=== PATIENT | female | born 1975 | race Caucasian/White ===

== ENCOUNTER 2017-02-27 17:27 | Emergency (ER) | payer OTHER ==
[2017-02-27] MEDS ORDERED: ACETAMINOPHEN 325 MG TABLET (FP) PO ONE (17:38)
[2017-02-27 17:42] VITALS: BP 114/57; BMI 27.9
--- NOTE | 2017-02-27 19:03 | PDOC ---
"History of Present Illness - General Chief Complaint: Sore Throat Stated Complaint: COLD SYMPTOMS Time Seen by Provider: 02/27/17 18:38 History Source: Patient Exam Limitations: No Limitations - History of Present Illness Initial Comments: 02/27/17 19:11 My Chief complaint: Fever and sore throat 2 days and left lower back pain for 4 days with radiation down left leg History of present illness: Pt.is a 41-year-old female with a history of herniated disks with radiculopathy down left leg here today complaining of fever and sore throat 2 days and worsening left-sided lower back pain with radiation down left leg for last 5 days. Patient reports that she saw her neurologist on 02/18/2017 Dr. Negron and was given a prescription for Mobic 15 mg daily. Patient reports taking Mobic 15 mg today. Patient reports that left sided lower back pain with radiation down her left leg is currently a 10 out of 10. Patient denies any numbness of her left leg or any saddle anesthesia or any incontinency. Patient denies any chance of is not sexually active. Patient's son is here with her and is driving. Patient denies any cough or any nasal congestion. 02/28/17 09:13 Timing/Duration: getting worse Severity: moderate Associated Symptoms: reports: fever/chills, other (sore throat, left sided lower back pain with radiation down left leg) Past History - Past Medical History Allergies/Adverse Reactions: Allergies Allergy/AdvReac Type Severity Reaction Status Date / Time No Known Allergies Allergy Verified 02/27/17 17:37 Home Medications: Ambulatory Orders Amoxicillin - [Amoxicillin 500mg Capsule -] 1,000 mg PO DAILY #20 capsule Naproxen [Naprosyn -] 500 mg PO BID PRN #14 tablet 02/27/17 Other medical history: MIGRAINES, DISC PROBLEMS IN BACK AND NECK - Surgical History Appendectomy: Yes Cholecystectomy: Yes GI Surgery: Yes (gastric sleeve) Orthopedic Surgery: Yes (R. Shoulder) - Family Disease History Family Disease History: Diabetes: Mother - Psycho/Social/Smoking Cessation Hx Anxiety: No Suicidal Ideation: No Smoking History: Never smoked Have you smoked in the past 12 months: No Number of Cigarettes Smoked Daily: 0 'Breaking Loose' booklet given: 01/24/14 Hx Alcohol Use: No Drug/Substance Use Hx: No Substance Use Type: None Hx Substance Use Treatment: No Review of Systems - Review of Systems Able to Perform ROS?: Yes Constitutional: Yes: Fever HEENTM: Yes: Throat Pain Respiratory: No: Symptoms reported Cardiac (ROS): No: Symptoms Reported ABD/GI: No: Symptoms Reported : No: Symptoms Reported Musculoskeletal: Yes: Back Pain (left lower back pain with radiation down left leg to foot) Integumentary: No: Symptoms Reported Neurological: No: Symptoms reported *Physical Exam - Vital Signs Last Vital Signs Temp Pulse Resp BP Pulse Ox 103.0 F H 120 H 20 114/57 98 02/27/17 17:33 02/27/17 17:33 02/27/17 17:33 02/27/17 17:33 02/27/17 17:33 - Physical Exam General Appearance: Yes: Appropriately Dressed HEENT: positive: TMs Normal, Pharyngeal Erythema, Tonsillar Exudate (right sided with no uvular deviation ), Tonsillar Erythema, Nasal Congestion, Rhinorrhea Neck: positive: Lymphadenopathy (R), Lymphadenopathy (L) Respiratory/Chest: positive: Lungs Clear, Normal Breath Sounds. negative: Chest Tender, Respiratory Distress Cardiovascular: positive: Regular Rhythm, Regular Rate, S1, S2 Musculoskeletal: positive: Normal Inspection, Decreased Range of Motion (from waist ). negative: CVA Tenderness, CVA Tenderness (R), CVA Tenderness (L), Vertebral Tenderness Integumentary: positive: Normal Color Neurologic: positive: Alert, Normal Response, Motor Strength 5/5 (lower extremities), Respond to painful stimul (b/l lower extremities), Other (+ SLR left, ). negative: Numbness, Sensory Deficit (lower legs) Deep Tendon Reflexes: Knee (L): 4+, Knee (R): 4+ ED Treatment Course - Medications Given in the ED: ED Medications Discontinued Medications Generic Name Dose Route Start Last Admin Trade Name Freq PRN Reason Stop Dose Admin Acetaminophen 650 mg 02/27/17 17:38 02/27/17 17:39 Tylenol - PO 02/27/17 17:39 650 mg NOW ONE Administration Medical Decision Making - Medical Decision Making 02/27/17 19:14 Pt.is a 41-year-old female with a history of herniated disks with radiculopathy down left leg here today complaining of fever and sore throat 2 days and worsening left-sided lower back pain with radiation down left leg for last 5 days. Patient reports that she saw her neurologist on 02/18/2017 Dr. Negron and was given a prescription for Mobic 15 mg daily. Patient reports taking Mobic 15 mg today. Patient reports that left sided lower back pain with radiation down her left leg is currently a 10 out of 10. Patient denies any numbness of her left leg or any saddle anesthesia or any incontinency. Patient denies any chance of is not sexually active. Patient's son is here with her and is driving. Patient denies any cough or any nasal congestion. She did not tell [employer] that she had been given also Percocet 5/325 mg from her neurologist. tonsillitis r/o strep left lower back pain with radiculopathy left leg tonsillitis strep PLAN: Throat C&S rapid + for Beta hemolytic strep group A percocet 5mg /325 mg po now acetaminophen 650 mg po now amoxicillin 1000 mg daily for 10 days stop mobic take naprosyn 500 mg po bid for 7 days prn pain # 14 tabs [employer] REPA[employer] Confidential Drug Utilization Report Search Terms: Belen Buckley, 1975 Search Date: 02/27/2017 07:54:15 PM This report was requested by: Deanna Valdez | Reference #: [id number] Others' Prescriptions Patient Name: Belen Atkinson Date: 1975 Address: [address] [place] [address] Sex: Female Rx Written Rx Dispensed Drug Quantity Days Supply Prescriber Name 01/31/2017 02/01/2017 oxycodone-acetaminophen 5-325 mg tablet 120 30 Ricahrd Negron MD 01/31/2017 02/01/2017 diazepam 5 mg tablet 90 30 Richard Negron MD 02/28/17 09:14 02/28/17 09:14 *DC/Admit/Observation/Transfer Diagnosis at time of Disposition: Lumbar back pain with radiculopathy affecting left lower extremity, Streptococcal tonsillitis - Discharge Dispostion Disposition: HOME Condition at time of disposition: Stable - Prescriptions Prescriptions: Amoxicillin - [Amoxicillin 500mg Capsule -] 1,000 mg PO DAILY #20 capsule Naproxen [Naprosyn -] 500 mg PO BID PRN #14 tablet PRN Reason: Pain - Referrals Referrals: Wade Landry [Primary Care Provider] - - Patient Instructions Additional Instructions: Follow Up with your neurologist as soon as possible Return to emergency room if symptoms worsen any numbness of groin or trouble a bladder or bowel movement Stop taking Mobic when taking Naprosyn as ordered today Rule out her toothbrush at end of treatment get a new one Take Tylenol or acetaminophen as needed as directed by hand ornament maker for fever or pain associated with your throat Patient voiced understanding of discharge instructions and all questions were answered"
[2017-02-27] MEDS ORDERED: OXYCODONE/APAP 5/325MG COMBO TABLET PO ONE (19:17)
[2017-02-27] MEDS ORDERED: OXYCODONE/APAP 5/325MG COMBO TABLET ONE (19:24)
[2017-02-27 19:58] VITALS: PULSE 107; TEMP 101.5
== END 2017-02-27 20:04 | disposition home or self-care (01) ==
LOC: JER 17:27 → JERFT 17:27
DX: J03.00 Acute streptococcal tonsillitis, unspecified (principal); M54.16 Radiculopathy, lumbar region; Z98.84 Bariatric surgery status
CPT/HCPCS: 87070; 87077; 87430; 99281-25

== ENCOUNTER 2017-12-15 08:30 | Emergency (ER) | payer SELFPAY ==
[2017-12-15 08:36] VITALS: TEMP 98.3; BMI 27.4
--- NOTE | 2017-12-15 09:01 | PDOC ---
History of Present Illness - General Chief Complaint: Syncope/Near Syncope Stated Complaint: PASSED OUT Time Seen by Provider: 12/15/17 08:52 History Source: Patient Exam Limitations: No Limitations - History of Present Illness Initial Comments: 12/15/17 10:40 Patient is a 42-year-old female past medical history of low back pain, sciatica , migraines, who presents emergency department today after syncopal episode at 3 AM this morning. [place] states she got very hot, flushed and lightheaded. She states that she then "passed out "for an undetermined length of time. She is not sure if she hit her head. She states that multiple people at the casino witnessed her fall. She can recall all events. States that right now she feels a little weak area and otherwise denies recent illness, fevers, chills, headache, lightheadedness, dizziness, nausea, vomiting, hemoptysis, blood in the stool. Past History - Travel Traveled outside of the country in the last 30 days: No Close contact w/someone who was outside of country & ill: No - Past Medical History Allergies/Adverse Reactions: Allergies Allergy/AdvReac Type Severity Reaction Status Date / Time No Known Allergies Allergy Verified 12/15/17 08:31 Home Medications: Ambulatory Orders Oxycodone HCl/Acetaminophen [Percocet 5-325 mg Tablet] 1 tab PO Q6H PRN COPD: No Other medical history: SCIATICA, MIGRANES - Surgical History Appendectomy: Yes Cholecystectomy: Yes GI Surgery: Yes (gastric sleeve) Orthopedic Surgery: Yes (R. Shoulder) - Family Disease History Family Disease History: Diabetes: Mother - Suicide/Smoking/Psychosocial Hx Smoking History: Current some day smoker Have you smoked in the past 12 months: Yes Number of Cigarettes Smoked Daily: 2 Information on smoking cessation initiated: Yes 'Breaking Loose' booklet given: 12/15/17 Hx Alcohol Use: No Drug/Substance Use Hx: No Substance Use Type: None Hx Substance Use Treatment: No Review of Systems - Review of Systems Able to Perform ROS?: Yes Comments:: 12/15/17 10:42 CONSTITUTIONAL: Absent: fever, chills, diaphoresis, generalized weakness, malaise, loss of appetite HEENT: Absent: rhinorrhea, nasal congestion, throat pain, throat swelling, difficulty swallowing, mouth swelling, ear pain, eye pain, visual Changes CARDIOVASCULAR: Present: LOC Absent: chest pain, palpitations, irregular heart rate, peripheral edema RESPIRATORY: Absent: cough, shortness of breath, dyspnea with exertion, orthopnea, wheezing, stridor, hemoptysis GASTROINTESTINAL: Absent: abdominal pain, abdominal distension, nausea, vomiting, diarrhea, constipation, melena, hematochezia GENITOURINARY: Absent: dysuria, frequency, urgency, hesitancy, hematuria, flank pain, genital pain MUSCULOSKELETAL: Absent: myalgia, arthralgia, joint swelling SKIN: Absent: rash, itching, pallor HEMATOLOGIC/IMMUNOLOGIC: Absent: easy bleeding, easy bruising, lymphadenopathy, frequent infections ENDOCRINE: Absent: unexplained weight gain, unexplained weight loss, heat intolerance, cold intolerance NEUROLOGIC: Absent: headache, focal weakness or paresthesias, dizziness, unsteady gait, seizure, mental status changes, bladder or bowel incontinence PSYCHIATRIC: Absent: anxiety, depression, suicidal or homicidal ideation, hallucinations. Is the patient limited Cuban proficient: No *Physical Exam - Vital Signs Last Vital Signs Temp Pulse Resp BP Pulse Ox 98.3 F 95 H 19 104/62 100 12/15/17 08:31 12/15/17 08:31 12/15/17 08:31 12/15/17 08:31 12/15/17 08:31 - Physical Exam Comments: 12/15/17 10:43 GENERAL: Well developed, well nourished. Awake and alert. No acute distress. HEENT: Normocephalic, atraumatic. No bruising noted above the clavical. Head with no step offs or crepitus felt. No hemotympanum. PERRLA, EOMI. No conjunctival pallor. Sclera are non-icteric. Moist mucous membranes. Oropharynx is clear. NECK: Supple. Full ROM. No JVD. Carotid pulses 2+ and symmetric, without bruits. No thyromegaly. No lymphadenopathy. CARDIOVASCULAR: Regular rate and rhythm. No murmurs, rubs, or gallops. Distal pulses are 2+ and symmetric. PULMONARY: No evidence of respiratory distress. Lungs clear to auscultation bilaterally. No wheezing, rales or rhonchi. ABDOMINAL: Soft. Non-tender. Non-distended. No rebound or guarding. No organomegaly. Normoactive bowel sounds. MUSCULOSKELETAL Normal range of motion at all joints. No bony deformities or tenderness. No CVA tenderness. EXTREMITIES: No cyanosis. No clubbing. No edema. No calf tenderness. SKIN: Warm and dry. Normal capillary refill. No rashes. No jaundice. NEUROLOGICAL: Alert, awake, appropriate. Cranial nerves 2-12 intact. No deficits to light touch and temperature in face, upper extremities and lower extremities. No motor deficits in the in face, upper extremities and lower extremities. Normoreflexic in the upper and lower extremities. Normal speech. Toes are down- going bilaterally. Gait is normal without ataxia. PSYCHIATRIC: Cooperative. Good eye contact. Appropriate mood and affect. Heart Score/ECG Review - History History: Slightly suspicious - Electrocardiogram EKG: Normal - Age Age: </= 45 - Risk Factors Risk Factors Heart Score: Yes Smoking History Based on the list above the patient has:: 1-2 risk factors - Troponin Troponin: </= normal limit - Score Heart Score - Total: 1 ED Treatment Course - LABORATORY CBC & Chemistry Diagram: 12/15/17 09:04 12/15/17 09:04 Medical Decision Making - Medical Decision Making 12/15/17 09:43 Patient is a 42-year-old female past medical history of sciatica, low back pain , migraines, who presents after a syncopal episode early this morning. Patient states that other than feeling "a little weak" she feels back to her usual self. She currently denies headaches, lightheadedness or dizziness. No trauma on exam above the clavicles. Patient states she had 2 drinks last night however is not intoxicated at this time. Patient is able to recall all events of the syncopal episode. Most likely a vasovagal episode however will rule out ACS, electrolyte imbalance, infection. [place] head CT criteria is 0; will not scan at this time. 1.basic labs 2.EKG 3.IV fluids 4.Orthostatics 5.Reevaluate 12/15/17 10:45 EKG: Rate 82 bpm MSR, QTC 446, normal axis, no acute ST-T wave changes; overall impression normal EKG. Heart Score: 1 PERC: 0 Patient states she no longer feels weak after IV fluids. She is feeling much better and would like to go home. Lab work was notable for hemoglobin of 9.6. No active bleeding at this time. Patient states that she will follow with her primary care doctor regarding these results. Could be a reason as to syncopal episode. Troponin is WNL. No gross electrolyte abnormalities. Orthostatics are within normal limits. Will discharge patient home at this time. Return precautions given. Patient understands all discharge instructions and all questions were answered at this time. *DC/Admit/Observation/Transfer Diagnosis at time of Disposition: Syncope and collapse - Discharge Dispostion Disposition: HOME Condition at time of disposition: Stable Admit: No - Referrals Referrals: Gonzalo Contreras MD [Primary Care Provider] - - Patient Instructions Printed Discharge Instructions: DI for Syncope in Adults (Fainting), DI for Iron Deficiency Anemia-Adult Additional Instructions: You had a fainting spell. Your lab work today showed a low blood count concerning with anemia. Please follow-up with her primary care doctor this week regarding your blood results. Please drink plenty of fluids. Again follow-up with her primary care doctor within 24-48 hours. Return to emergency department if you have pain, weakness, nausea, vomiting, headaches, or have any changes in your symptoms. - Post Discharge Activity
[2017-12-15] MEDS ORDERED: SODIUM CHLORIDE 1,000 ML IV STA (09:03)
[2017-12-15 09:16] LABS: BASO % 0.5 % (0-2.0); EOS % 1.1 % (0-4.5); HEMATOCRIT 28.5 % (32.4-45.2); HEMOGLOBIN 9.1 GM/dL (10.7-15.3); LYMPH % 29.2 % (8-40); MCH 21.7 pg (25.7-33.7); MCHC 31.8 g/dl (32.0-36.0); MEAN CELL VOLUME 68.1 fl (80-96); MEAN PLT VOLUME 7.5 fl (7.5-11.1); MONO % 8.6 % (3.8-10.2); NEUT % 60.6 % (42.8-82.8); PLATELET COUNT 426 K/MM3 (134-434); RBC 4.18 M/mm3 (3.60-5.2); RDW 16.3 % (11.6-15.6); WHITE BLOOD COUNT 7.2 K/mm3 (4.0-10.0)
[2017-12-15 09:20] LABS: ADD RBC MORPHOLOGY YES
[2017-12-15 09:30] LABS: HCG,QUALITATIVE URINE NEGATIVE
[2017-12-15 09:31] LABS: URINE APPEARANCE SLCLOUDY; URINE BILIRUBIN NEGATIVE (NEGATIVE); URINE BLOOD NEGATIVE (NEGATIVE); URINE COLOR LTYELLOW; URINE GLUCOSE (UA) NEGATIVE (NEGATIVE); URINE KETONE NEGATIVE (NEGATIVE); URINE LEUK ESTERASE NEGATIVE (NEGATIVE); URINE NITRITE NEGATIVE (NEGATIVE); URINE PROTEIN NEGATIVE (NEGATIVE)
[2017-12-15 09:35] LABS: ALBUMIN 3.4 g/dl (3.4-5.0); ANION GAP 6 (8-16); BLOOD UREA NITROGEN 18 mg/dL (7-18); CALCIUM 8.4 mg/dL (8.5-10.1); CHLORIDE 107 mmol/L (98-107); CO2 26 mmol/L (21-32); GLUCOSE,RANDOM 81 mg/dL (74-106); POTASSIUM 4.5 mmol/L (3.5-5.1); SODIUM 139 mmol/L (136-145)
[2017-12-15 09:39] LABS: ALK PHOS 54 U/L (45-117); BILIRUBIN,TOTAL 0.5 mg/dL (0.2-1.0); CREATININE 0.7 mg/dL (0.55-1.02); SGOT/AST 15 U/L (15-37); SGPT/ALT 15 U/L (12-78); TOT PROT 7.4 g/dl (6.4-8.2)
[2017-12-15 11:45] VITALS: BP 100/69; PULSE 75
--- NOTE | 2017-12-15 17:36 | EKG ---
Test Reason : Blood Pressure : / mmHG Vent. Rate : 082 BPM Atrial Rate : 082 BPM P-R Int : 184 ms QRS Dur : 080 ms QT Int : 382 ms P-R-T Axes : 046 027 040 degrees QTc Int : 446 ms NORMAL SINUS RHYTHM NORMAL ECG NO PREVIOUS ECGS AVAILABLE Confirmed by FLAKO CASTREJON MD ([id number]) on 12/15/2017 5:35:59 PM Referred By: Confirmed By:FLAKO CASTREJON MD
== END 2017-12-15 11:51 | disposition home or self-care (01) ==
LOC: JER 08:30
PROC: 3E0337Z Introduction of Electrolytic and Water Balance Substance into Peripheral Vein, Percutaneous Approach (ICD-10-PCS; principal; 2017-12-15)
DX: R55 Syncope and collapse (principal); M54.5 Low back pain; G43.909 Migraine, unspecified, not intractable, without status migrainosus
CPT/HCPCS: 36415; 80053; 81003; 82550; 84484; 84703; 85025; 93005; 93010; 96360; 99285-25; J7030

== ENCOUNTER 2021-04-17 15:15 | Emergency (ER) | payer OTHER ==
[2021-04-17 15:43] VITALS: BP 96/60; PULSE 81; TEMP 98.4; BMI 29.5
[2021-04-17] MEDS ORDERED: SODIUM CHLORIDE 0.9% 500 ML INFUS.BAG IV ONE (16:50)
[2021-04-17 17:48] LABS: PH,URINE 5.5 (5.0-8.0); URINE APPEARANCE CLEAR; URINE BILIRUBIN NEGATIVE (NEGATIVE); URINE COLOR YELLOW; URINE GLUCOSE (UA) NEGATIVE (NEGATIVE); URINE KETONE NEGATIVE (NEGATIVE); URINE LEUK ESTERASE NEGATIVE (NEGATIVE); URINE NITRITE NEGATIVE (NEGATIVE); URINE PROTEIN NEGATIVE (NEGATIVE); URINE UROBILINOGEN 0.2 mg/dL (0.2-1.0)
[2021-04-17 17:49] LABS: BASO % 0.5 % (0-2.0); EOS % 2.7 % (0-4.5); HEMATOCRIT 29.1 % (32.4-45.2); HEMOGLOBIN 9.3 GM/dL (10.7-15.3); LYMPH % 42.5 % (8-40); MCH 20.6 pg (25.7-33.7); MCHC 31.9 g/dl (32.0-36.0); MEAN CELL VOLUME 64.5 fl (80-96); MEAN PLT VOLUME 6.9 fl (7.5-11.1); MONO % 13.6 % (3.8-10.2); NEUT % 40.7 % (42.8-82.8); PLATELET COUNT 382 10^3/uL (134-434); RBC 4.51 M/mm3 (3.60-5.2); RDW 17.3 % (11.6-15.6); WHITE BLOOD COUNT 4.7 K/mm3 (4.0-10.0)
[2021-04-17 18:03] LABS: ALBUMIN 3.7 g/dl (3.4-5.0); BLOOD UREA NITROGEN 9.4 mg/dL (7-18)
[2021-04-17 18:06] LABS: CREATININE 0.8 mg/dL (0.55-1.3)
[2021-04-17 18:08] LABS: BILIRUBIN,TOTAL 0.6 mg/dL (0.2-1); TOT PROT 8.2 g/dl (6.4-8.2)
[2021-04-17] MEDS ORDERED: KETOROLAC TROMETHAMINE 30 MG/1 ML VIAL IM ONE (18:08)
[2021-04-17] MEDS ORDERED: KETOROLAC TROMETHAMINE 30 MG/1 ML VIAL ONE (18:52)
[2021-04-17 18:55] LABS: ANISOCYTOSIS 2+; MACROCYTOSIS 0; PLATELET ESTIMATE NORMAL
== END 2021-04-17 19:58 | disposition home or self-care (01) ==
LOC: JERFT 15:15
PROC: 3E0233Z Introduction of Anti-inflammatory into Muscle, Percutaneous Approach (ICD-10-PCS; principal; 2021-04-17)
DX: R10.9 Unspecified abdominal pain (principal)
CPT/HCPCS: 36415; 80053; 81003; 85025; 87086; 96372; 99284-25

== ENCOUNTER 2021-09-27 20:03 | Emergency (ER) | payer OTHER ==
[2021-09-27 20:19] VITALS: BP 107/68; PULSE 89; TEMP 98.7; BMI 29.7
[2021-09-27] MEDS ORDERED: FAMOTIDINE 20 MG/50 ML IVPB 20 MG/50 ML MG IVPB ONE ×2 (20:39→21:07)
[2021-09-27] MEDS ORDERED: MAG HYDROX/AL HYDROX/SIMETH 30 ML UNIT-DOSE CUP PO ONE (20:39)
[2021-09-27] MEDS ORDERED: SODIUM CHLORIDE 0.9% 500 ML INFUS.BAG IV ONE (20:39)
[2021-09-27] MEDS ORDERED: ONDANSETRON 4 MG/2 ML VIAL IVPUSH ONE (21:03)
[2021-09-27] MEDS ORDERED: MAG HYDROX/AL HYDROX/SIMETH 30 ML UNIT-DOSE CUP ONE (21:06)
[2021-09-27] MEDS ORDERED: ONDANSETRON 4 MG/2 ML VIAL ONE (21:06)
[2021-09-27 21:53] LABS: BASO % 0.6 % (0-2.0); EOS % 4.3 % (0-4.5); HEMATOCRIT 35.6 % (32.4-45.2); HEMOGLOBIN 11.3 GM/dL (10.7-15.3); LYMPH % 29.1 % (8-40); MCH 22.5 pg (25.7-33.7); MCHC 31.6 g/dl (32.0-36.0); MEAN CELL VOLUME 71.1 fl (80-96); MEAN PLT VOLUME 8.2 fl (7.5-11.1); MONO % 10.2 % (3.8-10.2); NEUT % 55.8 % (42.8-82.8); PLATELET COUNT 377 10^3/uL (134-434); RBC 5.01 M/mm3 (3.60-5.2); RDW 19.6 % (11.6-15.6); WHITE BLOOD COUNT 8.2 K/mm3 (4.0-10.0)
[2021-09-27 22:29] LABS: CHLORIDE 107 mmol/L (98-107); SODIUM 140 mmol/L (136-145)
[2021-09-27 22:31] LABS: ALBUMIN 3.8 g/dl (3.4-5.0); ANION GAP 8 MMOL/L (8-16); BLOOD UREA NITROGEN 13.8 mg/dL (7-18); CALCIUM 9.2 mg/dL (8.5-10.1); CO2 25 mmol/L (21-32); GLUCOSE,RANDOM 120 mg/dL (74-106); LIPASE 241 U/L (73-393); MAGNESIUM 2.3 mg/dL (1.8-2.4)
[2021-09-27 22:34] LABS: SGOT/AST 22 U/L (15-37); SGPT/ALT 23 U/L (13-61)
[2021-09-27 22:35] LABS: CREATININE 0.8 mg/dL (0.55-1.3)
[2021-09-27 22:36] LABS: BILIRUBIN,TOTAL 0.5 mg/dL (0.2-1); TOT PROT 8.1 g/dl (6.4-8.2)
[2021-09-27 22:37] LABS: ALK PHOS 71 U/L (45-117)
[2021-09-27 22:56] LABS: EPI CELLS 31 /uL (0-25.1); HYALINE CASTS 1 /uL (0-3.1); PH,URINE 5.5 (5.0-8.0); URINE APPEARANCE CLEAR; URINE BACTERIA 348 /uL (0-1359); URINE BILIRUBIN NEGATIVE (NEGATIVE); URINE COLOR YELLOW; URINE GLUCOSE (UA) NEGATIVE (NEGATIVE); URINE KETONE NEGATIVE (NEGATIVE); URINE LEUK ESTERASE TRACE (NEGATIVE); URINE NITRITE NEGATIVE (NEGATIVE); URINE PROTEIN NEGATIVE (NEGATIVE); URINE UROBILINOGEN 0.2 mg/dL (0.2-1.0); URINE WBC 13 /uL (0-25.8); YEAST REVIEW (NEGATIVE)
== END 2021-09-28 00:03 | disposition home or self-care (01) ==
LOC: JER 20:03
PROC: 3E033GC Introduction of Other Therapeutic Substance into Peripheral Vein, Percutaneous Approach (ICD-10-PCS; principal; 2021-09-27)
PROC: 3E033GC Introduction of Other Therapeutic Substance into Peripheral Vein, Percutaneous Approach (ICD-10-PCS; 2021-09-27)
DX: R10.13 Epigastric pain (principal); R11.2 Nausea with vomiting, unspecified
CPT/HCPCS: 36415; 74019-TC-FY; 80053; 81003; 82550; 83690; 83735; 84484; 84703; 85025; 87086; 93005; 93010; 99285-25